=== PATIENT | male | born 1980 | race Two or more races ===

== ENCOUNTER 2024-10-19 18:04 | Emergency (ER) | payer MEDICAID, SELFPAY ==
[2024-10-19 18:45] VITALS: BP 173/80; PULSE 96; RESP 16; TEMP 37; O2SAT 100; BMI 22.8
--- NOTE | 2024-10-19 18:59 | XR_ITS ---
Examination: CT abdomen and pelvis without contrast. Coronal 3-D reconstructions. Sagittal 2-D reconstructions. Date and time of exam:October 19, 2024 1904 hrs. Indications: High blood pressure and bladder pain beginning 4 days ago CTDI: vol (mGy): 5.01 DLP: (mGycm): 295 Technique: Axial images of the abdomen have been obtained, 3 mm slice thickness Intravenous contrast material has not been administered. Low dose protocols were performed. One or more of the following dose reduction techniques were used; automated exposure control, adjustment of the mA and/or KV according to patient size, use of iterative reconstruction technique. Findings: No focal liver or splenic lesions No gallstones No pancreatic or adrenal mass Moderate bilateral renal parenchymal scar formation No renal or ureteral calculi, no hydronephrosis Aorta normal size Normal appendix No bowel obstruction No diverticulitis Thickening of the urinary bladder wall up to 9 mm No prostatomegaly Mild osteopenia Impression: Moderate bilateral renal parenchymal scar formation No hydronephrosis or ureteral calculi Normal appendix Significant thickening of the urinary bladder wall up to 9 mm, differential would include cystitis, early bladder carcinoma not excluded, clinical correlation advised
--- NOTE | 2024-10-19 19:00 | PD.EDRME ---
Rapid Medical Screening Exam RME Arrival date/time: 10/19/24 18:04 44M with history of HTN and DM presents to ED with several days of R flank pain and N/V. Chief Complaint: Urogenital-Male Time Seen by Provider: 10/19/24 18:42 Vital signs: Vital Signs Temperature 98.6 F 10/19/24 18:45 Pulse Rate 96 10/19/24 18:45 Respiratory Rate 16 10/19/24 18:45 Blood Pressure 173/80 H 10/19/24 18:45 Pulse Oximetry (%) 100 10/19/24 18:45 Oxygen Delivery Method Room Air 10/19/24 18:45
[2024-10-19] MEDS: KETOROLAC INJ 60 MG/2 ML VIAL IM (19:22)
[2024-10-19] MEDS: ONDANSETRON ODT 4 MG TABRAP PO (19:22)
[2024-10-19 19:32] LABS: Collection Type, Urine Clean Catch; Squamous Epithelial Cell,Urine 0 /hpf (0-5); WBC,Urine 0 /hpf (0-5)
[2024-10-19 20:01] LABS: Basophils # (Auto) 0.1 Thou/mm3 (0.0-0.2); Basophils % (Auto) 1 % (0-2.5); Eosinophils # (Auto) 0.1 Thou/mm3 (0.0-0.5); Eosinophils % (Auto) 2 % (0-10); Hematocrit 40.4 % (41.0-53.0); Hemoglobin 14.2 g/dL (13.5-16.0); Immature Granulocytes % (Auto) 0 % (0-0); Immature Granulocytes Auto 0.01 Thou/mm3 (0.00-0.00); Lymphocytes # (Auto) 3.3 Thou/mm3 (1.0-4.8); Lymphocytes % (Auto) 38 % (10-50); Mean Corpuscular HGB Conc 35.1 g/dl (31.0-37.0); Mean Corpuscular Volume 82 fL (80-100); Monocytes # (Auto) 0.7 Thou/mm3 (0.0-0.8); Monocytes % (Auto) 8 % (0-12); Neutrophils # (Auto) 4.5 Thou/mm3 (1.8-7.7); Neutrophils % (Auto) 52 % (37-80); Nucleated Red Blood Cell % 0 /100 WBC (0); Platelet Count 196 Thou/mm3 (140-440); RDW Standard Deviation 38.1 fL (35.1-43.9); White Blood Count 8.6 Thou/mm3 (3.8-10.6)
[2024-10-19 20:01] LABS: Bilirubin,Urine Negative (Negative); Blood,Urine Negative (Negative); Clarity,Urine Clear (Clear/Hazy); Color,Urine Colorless (Lt Yel-Yel); Culture Indicated,Urine Not Indicated; Glucose, Urine 4+ (Negative); Ketones,Urine Negative (Negative); Leukocyte Esterase,Urine Negative (Negative); Nitrite,Urine Negative (Negative); PH,Urine 6.5 (5.0-7.0); Protein,Urine Negative (Neg - Trace); RBC,Urine < 1 /hpf (0-3); Specific Gravity,Urine 1.021 (1.001-1.035); Urobilinogen,Urine Negative mg/dL (0.0-1.0)
[2024-10-19 20:17] LABS: Amphetamine/Methamp Scrn,U Negative (Negative); Barbiturate Screen,Urine Negative (Negative); Benzodiazepines Screen,Urine Negative (Negative); Benzoylecgonine Screen, Ur Negative (Negative); Fentanyl Screen,Urine Negative (Negative); Opiate Screen,Urine Negative (Negative); THC Screen,Urine Negative (Negative)
[2024-10-19 20:25] LABS: Alanine Aminotransferase 25 U/L (10-49); Albumin, Serum 4.6 gm/dL (3.5-5.0); Albumin/Globulin Ratio 1.4 (1.2-2.2); Alkaline Phosphatase 148 U/L (46-116); Anion Gap 5 (7-16); Aspartate Amino Transferase 13 U/L (0-34); BUN/Creatinine Ratio 12 Ratio (12-20); Bilirubin,Total 0.3 mg/dL (0.3-1.2); Blood Urea Nitrogen 16 mg/dL (9-23); Calcium 9.8 mg/dL (8.3-10.6); Calcium (Corrected) 9.8 mg/dL (8.5-10.1); Carbon Dioxide 29.1 mMol/L (20.0-31.0); Chloride 99 mMol/L (98-107); Creatinine (Component) 1.3 mg/dL (0.6-1.3); Globulin 3.2 gm/dL (2.3-3.5); Glucose 306 mg/dL (74-106); Lipase 50 U/L (12-53); Osmolality,Calculated 279 (275-295); Potassium 4.4 mMol/L (3.4-5.1); Sodium 133 mMol/L (136-145); Total Protein 7.8 gm/dL (5.7-8.2); eGFR > 60 See Note
--- NOTE | 2024-10-19 20:54 | EDNOTE_ITS ---
ED Abdominal Pain RME/HPI General Chief Complaint: Urogenital-Male Stated complaint: BLADDER PAIN/HIGH B/P x 4 DAYS, SENT FROM CLINIC Time seen by provider: 10/19/24 18:42 Arrival date/time: 10/19/24 18:04 RME / HPI RME / HPI narrative: 44-year-old male patient with significant history of hypertension diabetes mellitus, came in for evaluation regarding right upper quadrant pain. Onset of symptoms for several days, at least 4 days, as pain to the right upper quadrant, described as dull ache, severity mild. Patient also complained of nausea and vomiting nonbloody. Denies any diarrhea. Denies any constipation denies any dysuria hematuria or frequency. Patient denies any fever. 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 Related Data Previous Rx's ?Medication ?Instructions ?Recorded dicyclomine 20 mg tablet 20 mg PO QID PRN abdominal pain 10/19/24 #30 tabs Allergies Allergy/AdvReac Type Severity Reaction Status Date / Time No Known Allergies Allergy Verified 10/19/24 18:09 Review of Systems Review of Systems Narrative Review of Systems: Review of system reviewed and within normal limits except mentioned in HPI ED Exam Narrative Physical exam: VITAL SIGNS: Reviewed. GENERAL APPEARANCE: Alert and interactive, follows commands, no acute distress, HEAD AND FACE: Non-traumatic. ENT: PERRL, pink conjunctivitis, eyelid no trauma, Mucous membrane moist. NECK: Supple, nontender, no nuchal rigidity. CHEST: No tenderness, no crepitus, no paradoxical movement, no retractions. LUNGS: Clear, well ventilated, symmetric, no rales, no wheezing, no ronchi, no stridor, good breath sounds bilaterally. HEART: Regular rate, regular rhythm, no murmur, no gallops. ABDOMEN: Soft, positive bowel sounds, nondistended, no guarding, right upper quadrant tenderness, no rebound, no masses, RECTAL: Deferred. GENITAL: Deferred. NEUROLOGICAL: Gross motor function intact sensory function intact, Appropriate for age. MUSCULOSKELETAL: low back nontender, full range of motion. EXTREMITIES: Nontender, full range of motion. SKIN: Color pink, dry, no rash, no lacerations, no abrasions, no contusions. LYMPHATICS: Deferred. Course Quality Measures none Orders Category Date Time Status CT abdomen pelvis wo con Stat Exams 10/19/24 18:59 Completed CBC Stat Lab 10/19/24 19:46 Completed CMP [Comprehensive Metabolic Panel] Stat Lab 10/19/24 19:46 Completed Drug Screen,Urine Stat Lab 10/19/24 19:15 Completed Lipase Stat Lab 10/19/24 19:46 Completed Urinalysis, C/S if Indicated Stat Lab 10/19/24 19:15 Completed Ketorolac Inj [Toradol Inj] Med 10/19/24 18:59 Discontinued 60 mg IM X1 ONE Ondansetron Odt [Zofran Odt] Med 10/19/24 18:59 Discontinued 4 mg PO X1 ONE Vital Signs Vital signs: Vital Signs Temperature 98.6 F 10/19/24 18:45 Pulse Rate 96 10/19/24 18:45 Respiratory Rate 16 10/19/24 18:45 Blood Pressure 173/80 H 10/19/24 18:45 Pulse Oximetry (%) 100 10/19/24 18:45 Oxygen Delivery Method Room Air 10/19/24 18:45 Abdominal Pain MDM MDM Narrative MDM Narrative:: 44-year-old male patient with significant history of hypertension diabetes mellitus, came in for evaluation regarding right upper quadrant pain. Onset of symptoms for several days, at least 4 days, as pain to the right upper quadrant, described as dull ache, severity mild. Patient also complained of nausea and vomiting nonbloody. Denies any diarrhea. Denies any constipation denies any dysuria hematuria or frequency. Patient denies any fever. 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 Patient's laboratory workup all came back normal including normal LFTs. Patient CT scan of the abdomen also came back unremarkable except for possible cystitis versus early bladder malignancy. Results discussed with the patient. Currently patient is not having any symptoms in the bladder. Patient was closely advised to follow-up with PCP. Regarding CT scan finding. Patient agrees with the plan. Patient data External records reviewed:: None Clinical information provided by:: patient Social determinants that could affect healthcare access:: none Patient has the following chronic illnesses:: Hypertension diabetes How is presenting disease/condition affected by chronic disease/condition?: exacerbated by Evaluation data The following diagnostics were reviewed and interpreted by me:: lab results and radiology exam(s) Lab and/or radiology exams considered but not ordered:: None Interpretation Summary: Patient's workup today all came back normal including normal urinalysis. LFTs are also within normal limits. CT scan of the abdomen and pelvis showed Moderate bilateral renal parenchymal scar formation No hydronephrosis or ureteral calculi Normal appendix Significant thickening of the urinary bladder wall up to 9 mm, differential would include cystitis, early bladder carcinoma not excluded, clinical correlation advised Medications / Prescriptions Medications or Prescriptions considered but not ordered:: None Medication administrations:: Medication Administration History Discontinued Medications Ketorolac Tromethamine (Ketorolac Inj 60 Mg/2 Ml Vial) 60 mg IM X1 ONE Stop: 10/19/24 19:00 Last Admin: 10/19/24 19:22 Dose: 60 mg Documented By: KENY Ondansetron HCl (Ondansetron Odt 4 Mg Tabrap) 4 mg PO X1 ONE; Protocol Stop: 10/19/24 19:00 Last Admin: 10/19/24 19:22 Dose: 4 mg Documented By: KENY Toradol and Zofran Consultations Consultation(s) initiated? (list below): No Diagnosis Differential diagnosis abdominal pain: abdominal pain, pancreatitis and other (Biliary colic renal colic) Most likely diagnosis given after review of the tests above:: Right upper quadrant pain Admission Indicated Admission indicated?: not indicated Explain why admission is indicated or not indicated:: Stable Admission Request Was there a request for admission?: No Disposition Plan Disposition Plan: Discharge Discharge Attestation Discharge Attestation: The patient was given an opportunity to ask questions and understood the discharge instructions. Discharge instructions specifically effects, indications for sooner follow up or return to the emergency department, and the expected course of current diagnosis. Patient condition: Stable Discharge Plan Plan Patient Disposition: HOME (Self Care) Disposition Comment: Stable Prescriptions/Referrals Prescriptions/Med Rec: New dicyclomine 20 mg tablet 20 mg PO QID PRN (Reason: abdominal pain) Qty: 30 0RF Referrals: Andie Esparza FNP [Primary Care Provider] - In 1 week Problem List Clinical Impression: Abdominal pain, acute, right upper quadrant Patient/Caregiver Discharge Instructions Education Materials: Abdominal Pain Additional Instructions: Thank you for the opportunity for serving you today. You are stable for discharged . You are advised to: Follow-up with your PCP in 1 to 2 days Return to ED for worsening of symptoms Increase oral fluids Take medication as prescribed Print Language: Cuban Stand Alone Forms: Maria Antonia Award Info., Patient Portal Info Letter PA/CONSERVATION EDUCATOR Supervising Physician PA/CONSERVATION EDUCATOR Supervising Physician: MD Carrie
[2024-10-19 21:41] VITALS: BP 165/74; PULSE 78; RESP 19; TEMP 36.6; O2SAT 99
== END 2024-10-19 21:41 | disposition home or self-care (01) ==
PROVIDERS: Physician Assistant; Emergency Provider Emergency Medicine; PCP Nurse Practitioner Family
DX: N32.89 Other specified disorders of bladder (principal); N28.89 Other specified disorders of kidney and ureter; R10.11 Right upper quadrant pain
CPT/HCPCS: 36415; 74176; 80053; 80307; 81001; 83690; 85025; 96372; 99284; J1885; Q0162

== ENCOUNTER → 2024-11-07 | Outpatient (CLI) | payer MEDICAID, SELFPAY ==
--- NOTE | 2024-11-07 12:28 | XR_ITS ---
Examination: PA lateral chest 2 views TECHNIQUE: Upright PA lateral chest 2 views Exam date and time: November 07, 2024 at 1242 hours INDICATIONS: Fever shortness of breath today, diagnosis hypertension 3 months ago. FINDINGS: Early pneumonia right upper lobe. Normal heart size Left lung clear IMPRESSION: Early pneumonia right upper lobe
== END | disposition home or self-care (01) ==
PROVIDERS: PCP Nurse Practitioner Family; Referring Provider Internal Medicine; Visit Provider Internal Medicine
DX: J18.9 Pneumonia, unspecified organism (principal); R05.3 Chronic cough
CPT/HCPCS: 71046